=== PATIENT | female | born 1995 | race Caucasian/White ===

== ENCOUNTER 2017-01-03 15:22 | Emergency (ER) | payer OTHER ==
[~2017-01-03] VITALS: Ht 167.6 cm; Wt 70.5 kg
[~2017-01-03 15:22] MED LIST: CALNTAB PO; LICE1LOT TOPICAL
[2017-01-03 15:28] VITALS: BP 114/62; PULSE 90; RESP 16; TEMP 97.6; O2SAT 99
[2017-01-03] MEDS ORDERED: ELVI1TAB3 PO (15:48)
--- NOTE | 2017-01-03 16:06 | PD ---
HPI Chief Complaint: Abdominal Pain Time Seen by Provider: 16:04 Travel History International Travel<30 days: No Contact w/Intl Traveler<30days: No Traveled to known affect area: No History of Present Illness HPI This 21-year-old female is complaining of lower abdominal pain. She says since yesterday she has not urinated. She has been eating well. She had a section 4 months ago. He has been having some pain and swelling just below the site of the scar. She said she had a temp of 102 yesterday. She is HIV positive and is on medication. She says her viral load has been undetectable. PFSH Past Medical History Asthma: Yes Cancer: No Cardiovascular Problems: No COPD: No Diminished Hearing: No Endocrine: No Genitourinary: Yes Immune Disorder: Yes (HIV+) Musculoskeletal: No Neurologic: No Psychiatric: No Reproductive: No Respiratory: Yes (asthma) Immunizations Current: Yes (UTD) Sleep Apnea: No ?: Not LMP: 12/08/16 : 3 Para: 1 Miscarriage: 2 : 0 Dilation and Curettage (D&C): Yes (x1) Past Surgical History Section: Yes (X1) Social History Alcohol Use: Yes (OCCASIONAL) Tobacco Use: Yes (1/2 PPD) Substance Use: Yes (THC) Allergies-Medications (Allergen,Severity, Reaction): Coded Allergies: No Known Allergies (Verified , 01/03/17) Reported Meds & Prescriptions Reported Meds & Active Scripts Active Reported Genvoya (Zdhfrcxsatss-Ibiduzkgmq-Etzomkwwnoro-Tenofvir) [phone] Mg Tab 1 Tab PO DAILY Review of Systems General / Constitutional: Positive: Fever, No: Chills Eyes: No: Diploplia Cardiovascular: No: Chest Pain or Discomfort, Palpitations Respiratory: No: Shortness of Breath Gastrointestinal: Positive: Nausea Genitourinary: Positive: Frequency, Pelvic Pain Musculoskeletal: No: Myalgias Skin: No Rash, No Itching Endocrine: No: Heat Intolerance Hematologic/Lymphatic: No: Easy Bruising Physical Exam Narrative GENERAL: Well-developed female SKIN: Focused skin assessment warm/dry. HEAD: Atraumatic. Normocephalic. EYES: Pupils equal and round. No scleral icterus. No injection or drainage. ENT: No nasal bleeding or discharge. Mucous membranes pink and moist. NECK: Trachea midline. No JVD. CARDIOVASCULAR: Regular rate and rhythm. No murmur appreciated. RESPIRATORY: No accessory muscle use. Clear to auscultation. Breath sounds equal bilaterally. GASTROINTESTINAL: Abdomen soft, non-tender, nondistended. Hepatic and splenic margins not palpable. There is some suprapubic tenderness : There is slight white discharge which is sent for culture. There is no pain with movement of the cervix. There are no adnexal masses MUSCULOSKELETAL: No obvious deformities. No clubbing. No cyanosis. No edema. NEUROLOGICAL: Awake and alert. No obvious cranial nerve deficits. Motor grossly within normal limits. Normal speech. PSYCHIATRIC: Appropriate mood and affect; insight and judgment normal. Data Data Last Documented VS Vital Signs Date Time Temp Pulse Resp B/P (MAP) Pulse Ox O2 Delivery O2 Flow Rate FiO2 01/03/17 16:55 56 16 96/54 (68) 100 Room Air 01/03/17 15:28 97.6 Orders Orders Complete Blood Count With Diff (01/03/17 16:04) Comprehensive Metabolic Panel (01/03/17 16:04) Urinalysis - C+S If Indicated (01/03/17 16:04) Urinary Catheter Insert/Apply (01/03/17 16:04) Sodium Chlor 0.9% 1000 Ml Inj (Ns 1000 M (01/03/17 16:15) Ed Urine Pregnancytest Poc (01/03/17 16:24) Urine Culture (01/03/17 16:10) Gc And Chlamydia Pcr (01/03/17 16:42) Wet Prep Profile (01/03/17 16:42) Ceftriaxone Inj (Rocephin Inj) (01/03/17 16:45) Sodium Chlor 0.9% 1000 Ml Inj (Ns 1000 M (01/03/17 17:00) Ketorolac Inj (Toradol Inj) (01/03/17 17:00) Hydromorphone Pf Inj (Dilaudid Pf Inj) (01/03/17 18:00) Ondansetron Inj (Zofran Inj) (01/03/17 18:00) Labs Laboratory Tests Test 01/03/17 16:10 01/03/17 16:15 01/03/17 16:40 Urine Collection Type CLEAN CATCH Urine Color YELLOW Urine Turbidity MOD Urine pH 6.0 Urine Specific [place] 1.024 Urine Protein TRACE mg/dL Urine Glucose (UA) NEG mg/dL Urine Ketones NEG mg/dL Urine Occult Blood TRACE Urine Nitrite NEG Urine Bilirubin NEG Urine Leukocyte Esterase SMALL Urine RBC 0-3 /hpf Urine WBC 25-49 /hpf Urine WBC Clumps FEW Urine Squamous Epithelial Cells > 8 /hpf Urine Amorphous Sediment FEW Urine Bacteria MOD /hpf Microscopic Urinalysis Comment CULTURE INDICATED Urine Collection Time 1610 White Blood Count 5.6 TH/MM3 Red Blood Count 4.25 MIL/MM3 Hemoglobin 13.0 GM/DL Hematocrit 38.0 % Mean Corpuscular Volume 89.3 FL Mean Corpuscular Hemoglobin 30.6 PG Mean Corpuscular Hemoglobin Concent 34.3 % Red Cell Distribution Width 11.7 % Platelet Count 248 TH/MM3 Mean Platelet Volume 8.2 FL Neutrophils (%) (Auto) 56.7 % Lymphocytes (%) (Auto) 31.0 % Monocytes (%) (Auto) 7.3 % Eosinophils (%) (Auto) 4.3 % Basophils (%) (Auto) 0.7 % Neutrophils # (Auto) 3.3 TH/MM3 Lymphocytes # (Auto) 1.7 TH/MM3 Monocytes # (Auto) 0.4 TH/MM3 Eosinophils # (Auto) 0.2 TH/MM3 Basophils # (Auto) 0.0 TH/MM3 CBC Comment DIFF FINAL Differential Comment Blood Urea Nitrogen 10 MG/DL Creatinine 0.66 MG/DL Random Glucose 82 MG/DL Total Protein 7.4 GM/DL Albumin 3.9 GM/DL Calcium Level 8.9 MG/DL Alkaline Phosphatase 77 U/L Aspartate Amino Transf (AST/SGOT) 19 U/L Alanine Aminotransferase (ALT/SGPT) 26 U/L Total Bilirubin 0.7 MG/DL Sodium Level 136 MEQ/L Potassium Level 3.5 MEQ/L Chloride Level 106 MEQ/L Carbon Dioxide Level 23.4 MEQ/L Anion Gap 7 MEQ/L Estimat Glomerular Filtration Rate 114 ML/MIN Clue Cells (Wet Prep) NONE SEEN Vaginal Trichomonas (Wet Prep) NONE SEEN Vaginal Yeast (Wet Prep) NONE SEEN MDM Medical Decision Making Medical Screen Exam Complete: Yes Emergency Medical Condition: Yes Medical Record Reviewed: Yes Differential Diagnosis Differential includes UTI, PID, ovarian cysts Narrative Course Urinalysis shows 25-49 white cells. Hemoglobin is 13 with a white count of 5.6. Examination is not consistent with PID or ovarian cyst. Believe the problem is urinary tract infection. She has been given Rocephin and will be given prescription for Bactrim and pain medication. Diagnosis Primary Impression: UTI (urinary tract infection) Qualified Codes: N30.00 - Acute cystitis without hematuria Scripts Oxycodone-Acetaminophen (Percocet) 7.5-325 mg Tab 1 TAB PO Q4H Y for PAIN for 20 Days, TAB 0 Refills Prov: Gavin Martínez MD 01/03/17 Sulfamethoxazole-Trimethoprim (Bactrim DS) 800-160 Mg Tab 1 TAB PO BID for Infection, #20 TAB 0 Refills Prov: Gavin Martínez MD 01/03/17 Disposition: 01 DISCHARGE HOME Condition: Stable Gavin Martínez MD Jan 03, 2017 16:06
[2017-01-03] MEDS ORDERED: SODIUM CHLOR 0.9% 1000 ML INJ 1,000 ML IV ONE ×2 (16:15→17:00)
[2017-01-03 16:29] LABS: BLOOD, URINE TRACE (NEG); GLUCOSE,URINE NEG (NEG); KETONE, URINE NEG (NEG); NITRITE,URINE NEG (NEG)
[2017-01-03 16:31] LABS: AUTOMATED NEUTROPHIL # 3.3 TH/MM3 (1.8-7.7); BASOPHIL % 0.7 % (0.0-2.0); EOSINOPHIL # 0.2 TH/MM3 (0-0.4); EOSINOPHIL % 4.3 % (0.0-4.0); HEMO FLAGS DIFF FINAL; LYMPHOCYTE # 1.7 TH/MM3 (1.0-4.8); MEAN CELL VOLUME 89.3 FL (80.0-100.0); MEAN CORPUSCULAR HEMOGLOBIN 30.6 PG (27.0-34.0); MEAN CORPUSCULAR HGB CONC 34.3 % (32.0-36.0); MONO % 7.3 % (0.0-8.0); NEUT % 56.7 % (16.0-70.0); PLATELET COUNT 248 TH/MM3 (150-450); RED BLOOD COUNT 4.25 MIL/MM3 (4.00-5.30); RED CELL DISTRIBUTION WIDTH 11.7 % (11.6-17.2); WHITE BLOOD COUNT 5.6 TH/MM3 (4.0-11.0)
[2017-01-03 16:33] LABS: METHOD OF COLLECTION CLEAN CATCH; URINE COLOR YELLOW (YELLW/STRAW)
[2017-01-03 16:36] LABS: BACTERIA, URINE MOD /hpf; COMMENT (UR) CULTURE INDICATED; COMMENT2 (UR) MUCOUS PRESENT; CULTURE IF INDICATED CULTURE INDICATED; RBC, URINE 0-3 /hpf (0-3); SQUAMOUS EPITHELIAL CELL URINE > 8 /hpf (0-5)
[2017-01-03 16:37] LABS: CHLORIDE 106 MEQ/L (98-107); POTASSIUM 3.5 MEQ/L (3.5-5.1); SODIUM (NA) 136 MEQ/L (136-145)
[2017-01-03 16:41] LABS: ANION GAP 7 MEQ/L (5-15); BICARBONATE 23.4 MEQ/L (21.0-32.0); BLOOD UREA NITROGEN 10 MG/DL (7-18)
[2017-01-03 16:44] LABS: ALT (GPT) 26 U/L (9-42); AST (GOT) 19 U/L (16-38); GLOMERULAR FILTRATION RATE 114 ML/MIN (>89)
[2017-01-03] MEDS ORDERED: cefTRIAXone INJ 1,000 MG in SODIUM CHLORIDE 0.9% INJ 100 ML IV ONE (16:45)
[2017-01-03 16:46] LABS: TOTAL BILIRUBIN ADULT 0.7 MG/DL (0.2-1.0)
[2017-01-03 16:47] LABS: ALKALINE PHOSPHATASE 77 U/L (45-117)
[2017-01-03 16:55] VITALS: BP 96/54; PULSE 56; RESP 16; O2SAT 100
[2017-01-03 17:00] VITALS: BP 91/46; PULSE 60; RESP 16; O2SAT 98
[2017-01-03] MEDS ORDERED: KETOROLAC TROMETHAMINE 30 MG/ML (IVP) VIAL IV PUSH ONE (17:00)
[2017-01-03] MEDS ORDERED: PERC7.5T13 PO ×2 (17:56→21:26)
[2017-01-03] MEDS ORDERED: BACT800T5 PO (17:56)
[2017-01-03 18:00] VITALS: BP 91/46; PULSE 60; RESP 16; O2SAT 99
[2017-01-03] MEDS ORDERED: ONDANSETRON HCL 4 MG/2 ML VIAL IV PUSH ONE (18:00)
[2017-01-03] MEDS ORDERED: HYDROmorphone HCL PF 1 MG/ML VIAL IV PUSH ONE (18:00)
[2017-01-03 18:30] VITALS: RESP 16
[2017-01-03 23:09] LABS: CHLAMYDIA PCR NOT DETECTED (NOT DETECT); NEISSERIA PCR NOT DETECTED (NOT DETECT)
== END 2017-01-03 18:32 | disposition home or self-care (01) ==
LOC: PHED 15:22
DX: N30.00 Acute cystitis without hematuria (principal); B96.20 Unspecified Escherichia coli [E. coli] as the cause of diseases classified elsewhere; F17.210 Nicotine dependence, cigarettes, uncomplicated; J45.909 Unspecified asthma, uncomplicated; B20 Human immunodeficiency virus [HIV] disease; Z79.899 Other long term (current) drug therapy
CPT/HCPCS: 80053; 81001; 84703; 85025; 87077; 87086; 87186; 87210; 87491; 87591; 96361; 96365; 96375; 99284; J0696; J1170; J1885; J2405; J7030